=== PATIENT | female | born 1995 | race Two or more races ===

== ENCOUNTER 2021-04-10 14:23 | Emergency (ER) | payer BC, OTHER ==
[~2021-04-10] VITALS: Ht 162.6 cm; Wt 98.4 kg
[2021-04-10] MEDS ORDERED: HYDROmorphone HCL 2 MG/ML VL IV ONE (15:45)
[2021-04-10] MEDS ORDERED: ONDANSETRON HCL 4 MG/2 ML VIAL IV ONE (15:45)
[2021-04-10] MEDS ORDERED: SODIUM CHLORIDE 0.9% 1,000 ML IV ONE (15:45)
[2021-04-10 16:37] LABS: Albumin 3.2 g/dL (3.4-5.0); BUN/Creatinine Ratio 17.7; Calcium 9.1 mg/dL (8.5-10.1); Potassium 4.1 mmol/L (3.5-5.1)
[2021-04-10 16:39] LABS: Bilirubin, Total 0.3 mg/dL (0.2-1.0); Total Protein 7.6 g/dL (6.4-8.2)
[2021-04-10 16:44] LABS: Basophils # (auto) 0 10 ^3/uL (0-0.2); Basophils % (auto) 0.4 % (0.0-2.0); Eosinophils # (auto) 0.1 10 ^3/uL (0-0.8); Eosinophils % (auto) 0.8 % (0.0-7.0); Hematocrit 39.2 % (36.0-46.0); Hemoglobin 13.3 g/dL (12.2-16.2); Mean Corpuscular Hemoglobin 30.6 pg (28.0-32.0); Mean Corpuscular Hgb Conc. 33.8 g/dL (32.0-36.0); Mean Corpuscular Volume 90.7 fL (80.0-100.0); Monocytes # (auto) 0.7 10 ^3/uL (0-1.3); Monocytes % (auto) 7.4 % (0.0-12.0); Neutrophils # (auto) 6.5 10 ^3/uL (1.6-8.6); Neutrophils % (auto) 69.4 % (37.0-80.0); Red Blood Cells 4.33 10^6/uL (4.0-5.20); Red Cell Distribution Width 13.2 % (11.8-14.3); White Blood Cell 9.3 10^3/uL (4.4-10.8)
[2021-04-10 18:28] LABS: Urine Bacteria FEW /hpf (None Seen); Urine Blood 2+ /uL (Negative); Urine Budding Yeast FEW /hpf (None Seen); Urine Mucus FEW (None Seen); Urine Specific Gravity 1.023 (1.001-1.035); Urine WBC 9 /hpf (0 - 5)
[2021-04-10] MEDS ORDERED: ACETAMINOPHEN 500 MG TAB PO ONE (20:00)
[2021-04-10 22:37] VITALS: BP 112/65
== END 2021-04-10 22:49 | disposition home or self-care (01) ==
LOC: ER 14:31
DX: O23.41 Unspecified infection of urinary tract in pregnancy, first trimester (principal); Z3A.01 Less than 8 weeks gestation of pregnancy
CPT/HCPCS: 36415; 76801; 80053; 81001; 81025; 83605; 83690; 85025; 96361; 96374; 96375; 99285; J1170; J2405; J7030

== ENCOUNTER 2021-08-12 18:31 | Emergency (ER) | payer BC ==
[~2021-08-12] VITALS: Ht 162.6 cm; Wt 97.5 kg
[2021-08-12 20:05] LABS: Basophils # (auto) 0 10 ^3/uL (0-0.2); Basophils % (auto) 0.5 % (0.0-2.0); Eosinophils # (auto) 0.1 10 ^3/uL (0-0.8); Eosinophils % (auto) 0.9 % (0.0-7.0); Hematocrit 34.9 % (36.0-46.0); Hemoglobin 12.1 g/dL (12.2-16.2); Lymphocytes # (auto) 2.2 10 ^3/uL (0.4-5.4); Lymphocytes % (auto) 24.1 % (10.0-50.0); Mean Corpuscular Hemoglobin 31.4 pg (28.0-32.0); Mean Corpuscular Hgb Conc. 34.7 g/dL (32.0-36.0); Mean Corpuscular Volume 90.5 fL (80.0-100.0); Monocytes # (auto) 0.6 10 ^3/uL (0-1.3); Monocytes % (auto) 6.2 % (0.0-12.0); Neutrophils # (auto) 6.1 10 ^3/uL (1.6-8.6); Neutrophils % (auto) 68.3 % (37.0-80.0); Nucleated Red Blood Cells % 0.1 %; Red Blood Cells 3.86 10^6/uL (4.0-5.20); White Blood Cell 8.9 10^3/uL (4.4-10.8)
[2021-08-12 20:24] VITALS: BP 102/58
[2021-08-12 20:37] LABS: Albumin 2.9 g/dL (3.4-5.0); BUN/Creatinine Ratio 13.5; Calcium 9.4 mg/dL (8.5-10.1); Potassium 3.9 mmol/L (3.5-5.1)
[2021-08-12 20:40] LABS: Bilirubin, Total 0.2 mg/dL (0.2-1.0); Total Protein 7.5 g/dL (6.4-8.2)
== END 2021-08-12 22:05 | disposition left against medical advice (07) ==
LOC: ER 18:31
DX: O29.42 Spinal and epidural anesthesia induced headache during pregnancy, second trimester (principal); R51.9 Headache, unspecified; H57.12 Ocular pain, left eye; Z53.21 Procedure and treatment not carried out due to patient leaving prior to being seen by health care provider; Z3A.28 28 weeks gestation of pregnancy
CPT/HCPCS: 36415; 80053; 84702; 85025

== ENCOUNTER 2022-03-09 02:04 | Emergency (ER) | payer BC ==
[~2022-03-09] VITALS: Ht 162.6 cm; Wt 97.7 kg
[2022-03-09] MEDS ORDERED: ONDANSETRON HCL 4 MG/2 ML VIAL IV ONE (03:00)
[2022-03-09] MEDS ORDERED: MORPHINE SULFATE 4 MG/ML SYR/VIAL IV ONE (03:00)
[2022-03-09] MEDS ORDERED: LACTATED RINGER'S 1,000 ML IV ONE (03:00)
[2022-03-09 03:01] LABS: Basophils # (auto) 0.1 10 ^3/uL (0-0.2); Basophils % (auto) 1.1 % (0.0-2.0); Eosinophils # (auto) 0.1 10 ^3/uL (0-0.8); Eosinophils % (auto) 1.4 % (0.0-7.0); Hematocrit 39.3 % (36.0-46.0); Hemoglobin 13.4 g/dL (12.2-16.2); Lymphocytes % (auto) 36.9 % (10.0-50.0); Mean Corpuscular Hemoglobin 30.6 pg (28.0-32.0); Mean Corpuscular Hgb Conc. 34.1 g/dL (32.0-36.0); Mean Corpuscular Volume 89.7 fL (80.0-100.0); Monocytes # (auto) 0.6 10 ^3/uL (0-1.3); Monocytes % (auto) 7.6 % (0.0-12.0); Neutrophils # (auto) 4.3 10 ^3/uL (1.6-8.6); Red Blood Cells 4.38 10^6/uL (4.0-5.20); Red Cell Distribution Width 12.8 % (11.8-14.3); White Blood Cell 8.2 10^3/uL (4.4-10.8)
[2022-03-09 03:07] LABS: Albumin 3.6 g/dL (3.4-5.0); BUN/Creatinine Ratio 17.1; Calcium 8.8 mg/dL (8.5-10.1)
[2022-03-09 03:10] LABS: Bilirubin, Total 0.3 mg/dL (0.2-1.0); Total Protein 7.8 g/dL (6.4-8.2)
[2022-03-09 03:11] LABS: Urine Bacteria NONE SEEN /hpf (None Seen); Urine Blood 1+ /uL (Negative); Urine Mucus FEW (None Seen); Urine Specific Gravity 1.025 (1.001-1.035); Urine WBC <1 /hpf (0 - 5)
[2022-03-09 06:42] VITALS: BP 105/39
== END 2022-03-09 08:00 | disposition home or self-care (01) ==
LOC: ER 02:05
DX: K80.20 Calculus of gallbladder without cholecystitis without obstruction (principal); R10.13 Epigastric pain
CPT/HCPCS: 36415; 74177; 80053; 81001; 81025; 83690; 85025; 96361; 96374; 96375; 99285; J2270; J2405

== ENCOUNTER 2024-06-30 12:25 | Emergency (ER) | payer BC ==
[~2024-06-30] VITALS: Ht 162.6 cm; Wt 104.5 kg
--- NOTE | 2024-06-30 12:47 | ECG ---
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
--- NOTE | 2024-06-30 12:53 | ED.PDOC ---
History of Present Illness HPI Comments 29F presents to the ER w/ prior SHx of , Appendectomy and cerclage, and the c/c of Dizziness. Pt reports on being at work today, when she got up, and had a near syncope x2 of hearing and vision fading which lasted 10 second at 11:00a.m. today. Pt states on having similar symptoms 3 weeks ago of the near syncope and saw her PCP Wednesday where they did a Ct which was N/ and he stated to her that he is going to refer her to a Neurologist. Pt currently is stating that she has face numbness, and being lightheaded. Denies chills, fever, N/V/D, SOB, CP. Chief Complaint: Dizziness Time Seen by MD: 12:30 Primary Care Provider: HOMER CAMACHO Reviewed Notes: Nurses Notes, Medications, Allergies Allergies: Coded Allergies: NO KNOWN ALLERGIES (Unverified , 04/10/21) Information Source: Patient Mode of Arrival: Ambulatory Severity: Moderate Timing: Minutes Duration: Since onset, Minutes Prehospital treatment: None Past Medical History PAST MEDICAL HISTORY: Denies Surgical History: Appendectomy, Surgical History (Other): cerclage STATEMENT DISTRIBUTION CLERK History: No Pertinent STATEMENT DISTRIBUTION CLERK History Family History Family History: Reviewed,noncontributory to illness Social History Smoker: Non-Smoker Alcohol: Denies ETOH Use Drugs: Denies Drug Use Lives In: Home Constitutional: denies: chills, diaphoresis, fatigue, fever, malaise, sweats, weakness, others EENTM: denies: blurred vision, double vision, ear bleeding, ear discharge, ear drainage, ear pain, ear ringing, eye pain, eye redness, hearing loss, mouth pain, mouth swelling, nasal discharge, nose bleeding, nose congestion, nose pain, photophobia, tearing, throat pain, throat swelling, voice changes, others Respiratory: denies: cough, hemoptysis, orthopnea, SOB at rest, shortness of breath, SOB with excertion, stridor, wheezing, others Cardiovascular: reports: others (Near Syncope); denies: chest pain, dizzy spells, diaphoresis, Dyspnea on exertion, edema, irregular heart beat, left arm pain, lightheadedness, palpitations, PND, syncope Gastrointestinal: denies: abdomen distended, abdominal pain, blood streaked bowels, constipated, diarrhea, dysphagia, difficulty swallowing, hematemesis, melena, nausea, poor appetite, poor fluid intake, rectal bleeding, rectal pain, vomiting, others Genitourinary: denies: abnormal vagina bleeding, burning, dyspareunia, dysuria, flank pain, frequency, hematuria, incontinence, pain, , vagina discharge, urgency, others Neurological: reports: tingling (on face), others (lightheaded); denies: dizziness, fainting, headache, left sided numbness, left sided weakness, numbness, paresthesia, pre-existing deficit, right sided numbness, right sided weakness, seizure, speech problems, tremors, weakness Musculoskeletal: denies: back pain, gout, joint pain, joint swelling, muscle pain, muscle stiffness, neck pain, others Integumetry: denies: bruises, change in color, change in hair/nails, dryness, laceration, lesions, lumps, rash, wounds, others Allergic/Immunocompromised: denies: Difficulty Healing, Frequent Infections, Hives, Itching, others Hematologic/Lymphatic: denies: anemia, blood clots, easy bleeding, easy bruising, swollen glands, others Endocrine: denies: excessive hunger, excessive sweating, excessive thirst, excessive urination, flushing, intolerance to cold, intolerance to heat, unexplained weight gain, unexplained weight loss, others Psychiatric: denies: anxiety, bipolar disorder, depression, hopeless, panic disorder, schizophrenia, sleepless, suicidal, others All Other Systems: Reviewed and Negative Physical Exam General Appearance: No Apparent Distress, Normal HEENT: Normal ENT Inspection, Pharynx Normal, TMs Normal Neck: Full Range of Motion, Non-Tender, Normal, Normal Inspection Respiratory: Chest Non-Tender, Lungs Clear, No Accessory Muscle Use, No Respiratory Distress, Normal Breath Sounds Cardiovascular: No Edema, No JVD, No Murmur, No Gallop, Normal Peripheral Pulses, Regular Rate/Rhythm Breast Exam: Deferred Gastrointestinal: No Organomegaly, Non Tender, No Pulsatile Mass, Normal Bowel Sounds, Soft Genitalia: Deferred Pelvic: Deferred Rectal: Deferred Extremities: No calf tenderness, Normal capillary refill, Normal inspection, Normal range of motion, Non-tender, No pedal edema Musculoskeletal : Apperance: Normal Neurologic: Alert, transcription typist II-XII nml as Tested, No Motor Deficits, Normal Affect, Normal Mood, No Sensory Deficits Cerebellar Function: Normal Reflexes: Normal Skin: Dry, Normal Color, Warm Lymphatic: No Adenopathy Was a procedure done? Was a procedure done?: No EKG EKG : Pulse Rate (adult): 73 [place]: Normal Cardiac Rhythm: NSR Block: None Hypertrophy: None ST: Normal Differential Dx Considerations may include: Generalized weakness, viral syndrome, dehydration, near-syncope X-Ray, Labs, Meds, VS Vital Signs Date Time Temp Pulse Resp B/P (MAP) Pulse Ox O2 Delivery O2 Flow Rate FiO2 06/30/24 13:16 99.1 74 16 134/77 (96) 98 99.1 06/30/24 12:53 73 Lab Test 06/30/24 13:15 06/30/24 13:10 06/30/24 12:40 Range/Units Urine Color Colorless Yellow Urine Clarity Clear Clear Urine pH 6.5 5.0-9.0 Urine Specific [place] 1.003 1.001-1.035 Urine Protein Negative Negative Urine Ketones Negative Negative Urine Blood 1+ H Negative /uL Urine Nitrite Negative Negative Urine Bilirubin Negative Negative Urine Urobilinogen Normal Negative mg/dL Urine Leukocyte Esterase Negative Negative /uL Urine RBC 1 0 - 4 /hpf Urine Microscopic WBC < 1 0-5 /HPF Urine Squamous Epithelial Cells Few <5 /hpf Urine Bacteria Few H None Seen /hpf Urine Glucose Normal Normal mg/dL White Blood Count 7.9 4.4-10.8 10^3/uL Red Blood Count 4.60 4.0-5.20 10^6/uL Hemoglobin 14.0 12.2-16.2 g/dL Hematocrit 41.6 36.0-46.0 % Mean Corpuscular Volume 90.3 80.0-100.0 fL Mean Corpuscular Hemoglobin 30.4 28.0-32.0 pg Mean Corpuscular Hemoglobin Concent 33.7 32.0-36.0 g/dL Red Cell Distribution Width 12.6 11.8-14.3 % Platelet Count 260 140-450 10^3/uL Mean Platelet Volume 8.4 6.9-10.8 fL Neutrophils (%) (Auto) 54.2 37.0-80.0 % Lymphocytes (%) (Auto) 37.5 10.0-50.0 % Monocytes (%) (Auto) 5.9 0.0-12.0 % Eosinophils (%) (Auto) 1.9 0.0-7.0 % Basophils (%) (Auto) 0.5 0.0-2.0 % Neutrophils # (Auto) 4.3 1.6-8.6 10 ^3/uL Lymphocytes # (Auto) 3.0 0.4-5.4 10 ^3/uL Monocytes # (Auto) 0.5 0-1.3 10 ^3/uL Eosinophils # (Auto) 0.1 0-0.8 10 ^3/uL Basophils # (Auto) 0 0-0.2 10 ^3/uL Nucleated Red Blood Cells 0.1 % Sodium Level 139 136-145 mmol/L Potassium Level 3.5 3.5-5.1 mmol/L Chloride Level 105 98-107 mmol/L Carbon Dioxide Level 26 20-31 mmol/L Anion Gap 8 5-15 Blood Urea Nitrogen 10 9-23 mg/dL Creatinine 0.69 0.550-1.02 mg/dL Glomerular Filtration Rate Calc 119 >90 mL/min BUN/Creatinine Ratio 14.5 10.0-20.0 Serum Glucose 98 74-106 mg/dL Calcium Level 9.8 8.7-10.4 mg/dL POC Glucose 71 70-106 mg/dl The patient's CBC and chemistry panel are within normal limits. The patient's urine test is negative for infection At this time, the patient was being discharged The patient will follow up with the primary care doctor The patient will return to the emergency department's the condition worsens. We feel that this vertigo could be secondar to viral syndrome Time of 1ST Reevaluation: 13:00 Reevaluation 1ST: Unchanged Time of 2ND Reevaluation: 14:52 Reevaluation 2ND: Improved Patient Education/Counseling: Diagnosis, Treatment, Prognosis, Need For Follow Up Family Education/Counseling: No Family Present Departure 1 Departure Time of Disposition: 14:52 Impression: Primary Impression: Vertigo Additional Impression: Near syncope Disposition: 01 HOME / SELF CARE / HOMELESS Condition: Fair Discharged With: Self Critical Care Note Critical Care Time?: No Stability Stability form required: No Heart Score Heart Score: Heart Score Response (Comments) Value History N/A 0 EKG N/A 0 Age N/A 0 Risk Factors N/A 0 Troponin N/A 0 Total 0 I personally scribed for NELSON BROWN MD ([email or web address]) on 06/30/24 at 12:53. Electronically submitted by Juan Santana ([email or web address]). NELSON BROWN MD June 30, 2024 12:53
[2024-06-30 13:29] LABS: Basophils # (auto) 0 10 ^3/uL (0-0.2); Basophils % (auto) 0.5 % (0.0-2.0); Eosinophils # (auto) 0.1 10 ^3/uL (0-0.8); Eosinophils % (auto) 1.9 % (0.0-7.0); Hematocrit 41.6 % (36.0-46.0); Lymphocytes % (auto) 37.5 % (10.0-50.0); Mean Corpuscular Hemoglobin 30.4 pg (28.0-32.0); Mean Corpuscular Hgb Conc. 33.7 g/dL (32.0-36.0); Mean Corpuscular Volume 90.3 fL (80.0-100.0); Monocytes # (auto) 0.5 10 ^3/uL (0-1.3); Monocytes % (auto) 5.9 % (0.0-12.0); Neutrophils # (auto) 4.3 10 ^3/uL (1.6-8.6); Neutrophils % (auto) 54.2 % (37.0-80.0); Nucleated Red Blood Cells % 0.1 %; Platelet Count (auto) 260 10^3/uL (140-450); Red Cell Distribution Width 12.6 % (11.8-14.3); White Blood Cell 7.9 10^3/uL (4.4-10.8)
[2024-06-30 13:34] LABS: Chloride 105 mmol/L (98-107); Potassium 3.5 mmol/L (3.5-5.1); Sodium 139 mmol/L (136-145)
[2024-06-30 13:35] LABS: Anion Gap 8 (5-15); Calcium 9.8 mg/dL (8.7-10.4); Carbon Dioxide 26 mmol/L (20-31)
[2024-06-30 13:40] LABS: BUN/Creatinine Ratio 14.5 (10.0-20.0); Blood Urea Nitrogen 10 mg/dL (9-23); Glucose 98 mg/dL (74-106)
[2024-06-30 13:54] LABS: Urine Bacteria FEW /hpf (None Seen); Urine Blood 1+ /uL (Negative); Urine Clarity Clear (Clear); Urine Color Colorless (Yellow); Urine Protein, UAD Negative (Negative); Urine Specific Gravity 1.003 (1.001-1.035); Urine Squamous Epithelial Cell FEW /hpf (<5); Urine Urobilinogen Normal (Negative); Urine WBC < 1 /HPF (0-5); Urine pH 6.5 (5.0-9.0)
[2024-06-30 17:01] VITALS: BP 95/45; PULSE 68; RESP 15; TEMP 98.4; O2SAT 98
== END 2024-06-30 17:11 | disposition home or self-care (01) ==
LOC: ER 12:25
DX: R42 Dizziness and giddiness (principal); R55 Syncope and collapse; Z90.49 Acquired absence of other specified parts of digestive tract; Z98.890 Other specified postprocedural states
CPT/HCPCS: 36415; 80048; 81001; 82947; 82962; 85025; 93005

== ENCOUNTER 2024-08-23 19:47 | Emergency (ER) | payer BC ==
[~2024-08-23] VITALS: Ht 162.6 cm; Wt 104.1 kg
[2024-08-23 21:01] LABS: Basophils # (auto) 0 10 ^3/uL (0-0.2); Basophils % (auto) 0.4 % (0.0-2.0); Eosinophils # (auto) 0.1 10 ^3/uL (0-0.8); Eosinophils % (auto) 1.2 % (0.0-7.0); Hematocrit 41.4 % (36.0-46.0); Lymphocytes # (auto) 2.7 10 ^3/uL (0.4-5.4); Lymphocytes % (auto) 30.3 % (10.0-50.0); Mean Corpuscular Hemoglobin 30.6 pg (28.0-32.0); Mean Corpuscular Hgb Conc. 33.8 g/dL (32.0-36.0); Mean Corpuscular Volume 90.6 fL (80.0-100.0); Monocytes # (auto) 0.5 10 ^3/uL (0-1.3); Monocytes % (auto) 5.6 % (0.0-12.0); Neutrophils # (auto) 5.6 10 ^3/uL (1.6-8.6); Neutrophils % (auto) 62.5 % (37.0-80.0); Nucleated Red Blood Cells % 0.1 %; Platelet Count (auto) 233 10^3/uL (140-450); Red Blood Cells 4.57 10^6/uL (4.0-5.20); Red Cell Distribution Width 12.8 % (11.8-14.3)
[2024-08-23 21:10] LABS: Potassium 3.7 mmol/L (3.5-5.1); Sodium 143 mmol/L (136-145)
[2024-08-23 21:11] LABS: Anion Gap 13 (5-15); Calcium 9.4 mg/dL (8.7-10.4); Carbon Dioxide 22 mmol/L (20-31)
[2024-08-23 21:16] LABS: BUN/Creatinine Ratio 14.7 (10.0-20.0); Blood Urea Nitrogen 11 mg/dL (9-23); Glucose 83 mg/dL (74-106)
[2024-08-23 21:23] LABS: Chloride 108 mmol/L (98-107)
--- NOTE | 2024-08-23 22:25 | ED.PDOC ---
HPI Comments 29 y/o obese F is BIBA for c/c palpitations. Per EMS report, patient endorses on sudden and unprovoked onset of symptoms, while driving to work, 30-45x minutes prior to arrival. She was noted to have been found with an initial heart rate in the 240's. Vagal techniques and 1x 6mg of Adenosine was given, with improvement. At time of assessment, patient endorses on being asymptomatic. 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 Chief Complaint: Palpitations Time Seen by MD: 20:20 Primary Care Provider: HOMER CAMACHO Reviewed Notes: Nurses Notes, Performance Improvement Analyst Notes, Medications, Allergies Allergies: Coded Allergies: NO KNOWN ALLERGIES (Unverified , 04/10/21) Information Source: Patient, Emergency Med Personnel Mode of Arrival: EMS Severity: Moderate Timing: Hours Duration: Since onset Prehospital treatment: 12 Lead EKG, Physical Chemistry Teacher, Treatment (6mg Adenosine) Associated Signs and Symptoms: Palpitations Past Medical History Past Medical History (Other): Palpitations Surgical History: Appendectomy, NEGATIVE ASSEMBLER History: No Pertinent NEGATIVE ASSEMBLER History Family History Family History: Reviewed,noncontributory to illness Social History Smoker: Non-Smoker Alcohol: Denies ETOH Use Drugs: Denies Drug Use Lives In: Home All Other Systems: Reviewed and Negative (Comprehensive systems review obtained and negative except for what is stated in the HPI.) Physical Exam General Appearance: No Apparent Distress, Obese HEENT: Normal ENT Inspection, Pharynx Normal, TMs Normal Neck: Full Range of Motion, Non-Tender, Normal, Normal Inspection Respiratory: Chest Non-Tender, Lungs Clear, No Accessory Muscle Use, No Respiratory Distress, Normal Breath Sounds Cardiovascular: No Edema, No JVD, No Murmur, No Gallop, Normal Peripheral Pulses, Regular Rate/Rhythm Breast Exam: Deferred Gastrointestinal: No Organomegaly, Non Tender, No Pulsatile Mass, Normal Bowel Sounds, Soft Genitalia: Deferred Pelvic: Deferred Rectal: Deferred Extremities: No calf tenderness, Normal capillary refill, Normal inspection, Normal range of motion, Non-tender, No pedal edema Musculoskeletal : Apperance: Normal Neurologic: Alert, high school auto repair teacher II-XII nml as Tested, No Motor Deficits, Normal Affect, Normal Mood, No Sensory Deficits Cerebellar Function: Normal Reflexes: Normal Skin: Dry, Normal Color, Warm Lymphatic: No Adenopathy Was a procedure done? Was a procedure done?: No CP Differential Dx Differential Diagnosis: Anxiety / Panic Attack, PSVT, Sinus Tachycardia, Ventricular Dysrhythmia, V-Tach Differential Diagnosis: N/A Differential Diagnosis: Other (N/A) X-Ray, Labs, Meds, VS Vital Signs Date Time Temp Pulse Resp B/P (MAP) Pulse Ox O2 Delivery O2 Flow Rate FiO2 08/23/24 22:46 87 87 98 Room Air* 0 21 08/23/24 22:46 97.9 87 20 107/66 (80) 98 97.9 08/23/24 19:55 99.3 99 20 132/75 (94) 96 99.3 08/23/24 19:49 107 Lab Test 08/23/24 23:00 08/23/24 21:33 08/23/24 20:46 Range/Units Urine Color Colorless Yellow Urine Clarity Clear Clear Urine pH 6.5 5.0-9.0 Urine Specific [place] 1.010 1.001-1.035 Urine Protein Negative Negative Urine Ketones Negative Negative Urine Blood Negative Negative /uL Urine Nitrite Negative Negative Urine Bilirubin Negative Negative Urine Urobilinogen Normal Negative mg/dL Urine Leukocyte Esterase 1+ Negative /uL Urine RBC None seen 0 - 4 /hpf Urine Microscopic WBC 1 0-5 /HPF Urine Squamous Epithelial Cells Few <5 /hpf Urine Bacteria Few H None Seen /hpf Urine Glucose Normal Normal mg/dL Urine Test Negative Negative Troponin I High Sensitivity 8 3 L </=34 ng/L White Blood Count 9.0 4.4-10.8 10^3/uL Red Blood Count 4.57 4.0-5.20 10^6/uL Hemoglobin 14.0 12.2-16.2 g/dL Hematocrit 41.4 36.0-46.0 % Mean Corpuscular Volume 90.6 80.0-100.0 fL Mean Corpuscular Hemoglobin 30.6 28.0-32.0 pg Mean Corpuscular Hemoglobin Concent 33.8 32.0-36.0 g/dL Red Cell Distribution Width 12.8 11.8-14.3 % Platelet Count 233 140-450 10^3/uL Mean Platelet Volume 8.0 6.9-10.8 fL Neutrophils (%) (Auto) 62.5 37.0-80.0 % Lymphocytes (%) (Auto) 30.3 10.0-50.0 % Monocytes (%) (Auto) 5.6 0.0-12.0 % Eosinophils (%) (Auto) 1.2 0.0-7.0 % Basophils (%) (Auto) 0.4 0.0-2.0 % Neutrophils # (Auto) 5.6 1.6-8.6 10 ^3/uL Lymphocytes # (Auto) 2.7 0.4-5.4 10 ^3/uL Monocytes # (Auto) 0.5 0-1.3 10 ^3/uL Eosinophils # (Auto) 0.1 0-0.8 10 ^3/uL Basophils # (Auto) 0 0-0.2 10 ^3/uL Nucleated Red Blood Cells 0.1 % Sodium Level 143 136-145 mmol/L Potassium Level 3.7 3.5-5.1 mmol/L Chloride Level 108 H 98-107 mmol/L Carbon Dioxide Level 22 20-31 mmol/L Anion Gap 13 5-15 Blood Urea Nitrogen 11 9-23 mg/dL Creatinine 0.75 0.550-1.02 mg/dL Glomerular Filtration Rate Calc 109 >90 mL/min BUN/Creatinine Ratio 14.7 10.0-20.0 Serum Glucose 83 74-106 mg/dL Calcium Level 9.4 8.7-10.4 mg/dL Time of 1ST Reevaluation: 23:35 Reevaluation 1ST: Resolved Patient Education/Counseling: Diagnosis, Treatment, Need For Follow Up Family Education/Counseling: No Family Present Additional Information Previous visits reviewed: June 30, 2024 encounter for dizziness. The following tests were ordered, and results were reviewed by me: Troponin, urine test, UA, CBC, BMP Additional Information was gathered from interviewing the following independent historians: EMS I reviewed and agreed with the following test results read by other providers: N/A I discussed treatment and results with medical personnel and: patient SEPSIS Sepsis Screen Date sepsis recognized/suspect: Aug 23, 2024 Time Sepsis recognized/suspect: 1954 Recent Procedure: No On Antibiotic Therapy: No Respiratory Rate >20: Yes Heart Rate >90: Yes Temp<36 C (96.8 F) or >38.3 C: No SBP <90 or MAP <65 mmHG: No New Acute Mental Status Change: No Is the patient on CPAP, BIPAP,: No Physician Orders Electrocardigram (08/23/24 23:02) Vital Signs Date Time Temp Pulse Resp B/P (MAP) Pulse Ox O2 Delivery O2 Flow Rate FiO2 08/23/24 22:46 87 87 98 Room Air* 0 21 08/23/24 22:46 97.9 87 20 107/66 (80) 98 97.9 08/23/24 19:55 99.3 99 20 132/75 (94) 96 99.3 08/23/24 19:49 107 Laboratory Tests Test 08/23/24 20:46 White Blood Count 9.0 10^3/uL (4.4-10.8) Departure 1 Departure Time of Disposition: 23:34 (Patient presented with palpitations and was found to be in SVT and converted with adenosine by EMS patient was offered admission to outside with the patient for to go home. We will discharge patient home with outpatient follow up) Impression: Primary Impression: SVT (supraventricular tachycardia) Additional Impression: Palpitations Disposition: HOME / SELF CARE / HOMELESS Condition: Stable Additional Instructions: Your workup today was benign. You can take Tylenol or Motrin as needed for pain. You should follow up with your regular doctor within 1 week. You should stay well rested and well hydrated. If your symptoms worsen or you have any other concerns please return to the emergency room. Discharged With: Self Critical Care Note Critical Care Time?: No Stability Stability form required: No Heart Score Heart Score: Heart Score Response (Comments) Value History Moderate Suspicious 1 EKG Normal 0 Age <45 0 Risk Factors 1 or 2 risk factors 1 Troponin Normal limit 0 Total 2 I personally scribed for JEREL KEVIN MD ([email or web address]) on 08/23/24 at 22:25. Electronically submitted by Diallo Daniel ([email or web address]). JEREL KEVIN MD Aug 23, 2024 22:25
[2024-08-23 22:46] VITALS: PULSE 87; RESP 87; TEMP 97.9; O2SAT 98
[2024-08-23 23:26] LABS: Urine Bacteria FEW /hpf (None Seen); Urine Blood Negative /uL (Negative); Urine Clarity Clear (Clear); Urine Color Colorless (Yellow); Urine Protein, UAD Negative (Negative); Urine Squamous Epithelial Cell FEW /hpf (<5); Urine Urobilinogen Normal (Negative); Urine WBC 1 /HPF (0-5); Urine pH 6.5 (5.0-9.0)
[2024-08-24 00:26] VITALS: BP 108/69; PULSE 75; RESP 16; O2SAT 97
--- NOTE | 2024-08-24 10:59 | ECG ---
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
== END 2024-08-24 00:30 | disposition home or self-care (01) ==
LOC: EDUNIT# 19:47 → ER 19:47 → EDBD 19:47 → ER 08-24 00:28
DX: I47.10 Supraventricular tachycardia, unspecified (principal); R00.2 Palpitations; Z90.49 Acquired absence of other specified parts of digestive tract
CPT/HCPCS: 36415; 80048; 81001; 81025; 84484; 85025; 93005

== ENCOUNTER 2024-12-04 18:07 | Emergency (ER) | payer BC ==
[~2024-12-04] VITALS: Ht 162.6 cm; Wt 103.6 kg
[2024-12-04 19:30] LABS: Urine Protein, UAD Negative (Negative)
[2024-12-04 19:32] LABS: Hematocrit 39.9 % (36.0-46.0); Hemoglobin 14.0 g/dL (12.2-16.2); Mean Corpuscular Hemoglobin 31.9 pg (28.0-32.0); Mean Corpuscular Volume 91.1 fL (80.0-100.0); Nucleated Red Blood Cells % 0.1 %
[2024-12-04 19:49] LABS: Alanine Aminotransferase 37 U/L (7-40); Albumin 4.5 g/dL (3.2-4.8); Alkaline Phosphatase 78 U/L (46-116); Anion Gap 12 (5-15); BUN/Creatinine Ratio 18.2 (10.0-20.0); Blood Urea Nitrogen 10 mg/dL (9-23); Calcium 9.6 mg/dL (8.7-10.4); Carbon Dioxide 23 mmol/L (20-31); Chloride 104 mmol/L (98-107); Glucose 90 mg/dL (74-106); Lipase 29 U/L (12-53); Potassium 4.1 mmol/L (3.5-5.1); Sodium 139 mmol/L (136-145); Total Protein 7.6 g/dL (5.7-8.2)
[2024-12-04 19:50] LABS: Bilirubin, Total 0.3 mg/dL (0.2-1.0)
--- NOTE | 2024-12-04 20:07 | DVH ---
CLINICAL HISTORY: GALLBLADDER/RUQ TECHNIQUE: Transabdominal sonogram was performed of the right upper quadrant. COMPARISON: CT AB PEL WITH IV CON ONLY on DOS: 03/09/22, ABPLIV on DOS: 03/09/22, OB ULTRASOUND COMP LESS 14WKS on DOS: 04/10/21 FINDINGS: The liver is increased in echogenicity. There is no focal parenchymal abnormality. No intrahepatic b iliary ductal dilatation is present. The liver measures 18.9 cm. The gallbladder is normal with no evidence for stones or wall thickening. The common bile duct is not seen. There is no dilated structure in its expected location. The pancreas is not. The right kidney is normal in echogenicity and measures 9 cm in length. There is no evidence for hydr onephrosis or calculi. IMPRESSION: Hepatomegaly with diffuse hepatic steatosis.
--- NOTE | 2024-12-04 20:13 | DVH ---
INDICATION: epig pain TECHNIQUE: Multiple real-time grayscale transabdominal and transvaginal sonographic images along with color and duplex Doppler of the uterus and ovaries were obtained. COMPARISON: OB ULTRASOUND COMP LESS 14WKS on DOS: 04/10/21 FINDINGS: The uterus measures 9.7 by 5 x 6.4 cm. Appears to be a gestational sac in the endometrial canal. The right ovary measures 3.2 x 2.3 x 3.1 cm. The left ovary measures 3.4 x 2.2 x 2.6 cm. There is a 1.4 x 1.4 x 1.7 cm anechoic lesion in the lef t ovary. Subsequent color and duplex Doppler interrogation of the ovaries demonstrated symmetric vascular flow to both ovaries, though this does not exclude the possibility of torsion due to the dual blood suppl y. Questionable gestational sac in the uterus which measures 0.74 cm. This is out of range for estimati ng gestational age. There is a questionable yolk sac noted within it. Recommend follow-up study. IMPRESSION: 1. Small cystic area in the endometrial canal measuring 1.66 x 1.31 x 1.47 cm cm. There is questionab le yolk sac seen. These findings are out of range for estimating gestational age. 2. No pole or heart rate. 3. There is a small hypovascular lesion in the uterus measuring 8 x 6 x 8 mm which appears nonvascul ar. 4. Recommend follow-up study.
--- NOTE | 2024-12-04 20:53 | ED.PDOC ---
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 29-year-old female presents to emergency department for evaluation of epigastric pain that started half an hour after she ate a grape fruit. Pain is nonspecific. Denies any nausea or vomiting or diarrhea or any lower abdominal pain. Patient states that she is but she does not know how far along. She is with three miscarriages. Patient denies any vaginal bleed. By the time I evaluated the patient she says the all her symptoms have resolved. She no longer has any abdominal discomfort. Past Medical History: Palpitations Past Surgical History: caught, cerclage REVIEW OF SYSTEMS: CONSTITUTIONAL: Denies acute: fever, diaphoresis, chills, generalized weakness. HEAD: Denies acute: headache, photophobia Eyes: Denies acute: Double vision, vision loss, eye pain, eye discharge. EARS: Denies acute: tinnitus, hearing loss, ear discharge, ear pain, THROAT: Denies acute: sore throat, swelling, difficulty swallowing , pain with swallowing, change in voice. NECK: Denies acute: neck pain, neck swelling, stiff neck. HEART: Denies acute : chest pain, palpitations, LUNGS: Denies acute: SOB, wheezing, cough, hemoptysis ABDOMEN: Denies acute: abdominal pain, Nausea, Vomiting, diarrhea, melena , hematemesis, hematochezia SKIN: Denies acute: rash, redness, lesions, itchiness. EXTREMITIES: Denies acute: calf pain, numbness, tingling, weakness, denies pain in extremity. Denies acute: Low back pain. Neuro: Denies acute: focal neurological deficit, motor or sensory focal neurological deficit, tremors, seizure like activity, confusion, dizziness, change in mental status, loss of bowel or bladder function, cauda equina like symptoms. : Denies acute: dysuria, hematuria, flank pain, increase in urinary frequency. PSYCH: Denies acute: hallucination, suicidal ideation, homicidal ideation. FEMALE: Denies acute: abnormal vaginal bleeding, foul odor, unusual discharge. PHYSICAL EXAM: General: -----no---acute distress, awake and alert. Head: normocephalic, atraumatic. Neck: supple, trachea is midline, no swelling. Throat: Normal phonation. Eyes:, no erythema, no purulent discharge, no proptosis, no icterus. Heart: regular rate, regular rhythm, no significant murmur appreciated. Lungs: no apparent respiratory distress, Able to speak in full sentences. No wheezing, no rhonchi, no crackles. No stridors Clear to auscultation bilaterally. Abdomen: non tender to palpation, non distended, soft, no guarding, no rebound, + bowel sounds. Obese Neuro: Awake, Alert, oriented to name, self, situation, follows commands GCS=15. Speech is normal. Skin: no petechia, no purpura, no cyanosis, non-pale, not jaundice. Lower extremities: --no - Pitting edema no deformity, no focal swelling, no calf TTP. Makes eye contact. moves all four extremities. Face: no apparent facial droop. Ambulating in the ED independently. ED COURSE: DISCLAIMER: This medical document was created using an electronic medical record system with voice recognition software and computerized dictation system. Although this document has been carefully reviewed, there might still be some phonetic and typographical errors. Occasional wrong-word or "sound-alike" substitutions may have occurred due to the inherent limitations of voice recognition software. These areas are purely typographical due to imperfections of the software programs and do not reflect any compromise in the patient's medical care. Please read the chart carefully and recognize, using context, where these substitutions have occurred. Chief Complaint: Abdominal Pain Time Seen by MD: 20:50 Reviewed Notes: Nurses Notes, Medications, Allergies Allergies: Coded Allergies: NO KNOWN ALLERGIES (Unverified , 04/10/21) Home Meds Active Scripts Cephalexin Monohydrate (Cephalexin) 500 Mg Cap, 500 MG PO Q8HR PRN for 5 Days, #15 CAP Prov:LOIBE ARBOLEDA DO 12/04/24 Information Source: Patient Mode of Arrival: Ambulatory Timing: Hours Prehospital treatment: None Severity: Moderate Vaginal Discharge: None Vaginal Lesions: None Vaginal Mass: None History of: Current Blood Type: Unknown Symptoms of Possible : Missed Period, Feels Past Medical History Surgical History: Appendectomy, 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 Was a procedure done?: No Differential Diagnosis (GUMMED TAPE PRESS OPERATOR) Vaginal Bleeding: Other (DDX include Diverticulitis, colitis, gastroenteritis, acute abdomen, SBO, enteritis, constipation, volvulus, appendicitis, Gallbladder disease, choledocolithiasis, ascending cholangitis, pancreatitis, intraAbdominal mass/neoplasm, hepatitis, UTI, pylonephritis, kidney stone, aneurysm, dissection, Inflammatory bowel disease, gastroparesis, ischemic bowel,,,,,,ovarian torsion, ovarian cyst/mass, tubo-ovarian abscess, , ectopic , PID, STD.), N/A X-Ray, Labs, Meds, VS Vital Signs Date Time Temp Pulse Resp B/P (MAP) Pulse Ox O2 Delivery O2 Flow Rate FiO2 12/04/24 22:35 97.8 66 16 122/62 (82) 99 97.8 12/04/24 18:08 98.2 96 18 127/87 99 98.2 Lab Test 12/04/24 18:48 12/04/24 18:26 Range/Units White Blood Count 10.2 4.4-10.8 10^3/uL Red Blood Count 4.38 4.0-5.20 10^6/uL Hemoglobin 14.0 12.2-16.2 g/dL Hematocrit 39.9 36.0-46.0 % Mean Corpuscular Volume 91.1 80.0-100.0 fL Mean Corpuscular Hemoglobin 31.9 28.0-32.0 pg Mean Corpuscular Hemoglobin Concent 35.0 32.0-36.0 g/dL Red Cell Distribution Width 13.2 11.8-14.3 % Platelet Count 220 140-450 10^3/uL Mean Platelet Volume 8.6 6.9-10.8 fL Neutrophils (%) (Auto) 61.1 37.0-80.0 % Lymphocytes (%) (Auto) 30.2 10.0-50.0 % Monocytes (%) (Auto) 7.0 0.0-12.0 % Eosinophils (%) (Auto) 1.2 0.0-7.0 % Basophils (%) (Auto) 0.5 0.0-2.0 % Neutrophils # (Auto) 6.3 1.6-8.6 10 ^3/uL Lymphocytes # (Auto) 3.1 0.4-5.4 10 ^3/uL Monocytes # (Auto) 0.7 0-1.3 10 ^3/uL Eosinophils # (Auto) 0.1 0-0.8 10 ^3/uL Basophils # (Auto) 0.1 0-0.2 10 ^3/uL Nucleated Red Blood Cells 0.1 % Sodium Level 139 136-145 mmol/L Potassium Level 4.1 3.5-5.1 mmol/L Chloride Level 104 98-107 mmol/L Carbon Dioxide Level 23 20-31 mmol/L Anion Gap 12 5-15 Blood Urea Nitrogen 10 9-23 mg/dL Creatinine 0.55 0.550-1.02 mg/dL Glomerular Filtration Rate Calc 126 >90 mL/min BUN/Creatinine Ratio 18.2 10.0-20.0 Serum Glucose 90 74-106 mg/dL Calcium Level 9.6 8.7-10.4 mg/dL Total Bilirubin 0.3 0.2-1.0 mg/dL Aspartate Amino Transferase (AST) 22 13-40 U/L Alanine Aminotransferase (ALT) 37 7-40 U/L Alkaline Phosphatase 78 46-116 U/L Total Protein 7.6 5.7-8.2 g/dL Albumin 4.5 3.2-4.8 g/dL Lipase 29 12-53 U/L Beta HCG, Quantitative 88685.1 H 1.5-4.2 mIU/mL Urine Color Light-yellow Yellow Urine Clarity Clear Clear Urine pH 6.0 5.0-9.0 Urine Specific [place] 1.024 1.001-1.035 Urine Protein Negative Negative Urine Ketones Negative Negative Urine Blood Negative Negative /uL Urine Nitrite Negative Negative Urine Bilirubin Negative Negative Urine Urobilinogen Normal Negative mg/dL Urine Leukocyte Esterase 2+ Negative /uL Urine RBC 3 0 - 4 /hpf Urine Microscopic WBC 8 H 0-5 /HPF Urine Squamous Epithelial Cells Few <5 /hpf Urine Bacteria Few H None Seen /hpf Urine Mucus Few None Seen Urine Glucose Normal Normal mg/dL [facility] [address] [facility] [address] Ph: [phone] DIAGNOSTIC IMAGING Diagnostic Imaging Report : [id number] Signed PATIENT: NEMESIO WEBSTER ACCT: [id number] UNIT: [id number] : 1995 LOC: ER ROOM / BED: / AGE / SEX: 29 / F ADM STATUS: REG ER SERVICE 36 ORDERING PHYSICIAN: BE MONSIVAIS DO PROCEDURE(s): ABDL - ABDOMEN LIMITED REASON: GALLBLADDER/RUQ ORDER NUMBER(s): [id number], ACCESSION NUMBER(s): [id number] CLINICAL HISTORY: GALLBLADDER/RUQ TECHNIQUE: Transabdominal sonogram was performed of the right upper quadrant. COMPARISON: CT AB PEL WITH IV CON ONLY on DOS: 03/09/22, ABPLIV on DOS: 03/09/22, OB ULTRASOUND COMP LESS 14WKS on DOS: 04/10/21 FINDINGS: The liver is increased in echogenicity. There is no focal parenchymal abnormality. No intrahepatic biliary ductal dilatation is present. The liver measures 18.9 cm. The gallbladder is normal with no evidence for stones or wall thickening. The common bile duct is not seen. There is no dilated structure in its expected location. The pancreas is not. The right kidney is normal in echogenicity and measures 9 cm in length. There is no evidence for hydronephrosis or calculi. IMPRESSION: Hepatomegaly with diffuse hepatic steatosis. ATED BY: SHANNAN BISHOP MD DICTATED DATE/TIME: 12/04/242004 SIGNED BY: SHANNAN BISHOP MD SIGNED DATE/TIME: 12/04/242004 CC: [place] [address] Ph: [phone] DIAGNOSTIC IMAGING Diagnostic Imaging Report : [id number] Signed PATIENT: NEMESIO WEBSTER ACCT: [id number] UNIT: [id number] : 1995 LOC: ER ROOM / BED: / AGE / SEX: 29 / F ADM STATUS: REG ER SERVICE 36 ORDERING PHYSICIAN: BE MONSIVAIS DO PROCEDURE(s): OB4US - OB ULTRASOUND COMP LESS 14WKS REASON: epig pain ORDER NUMBER(s): [id number], ACCESSION NUMBER(s): [id number] INDICATION: epig pain TECHNIQUE: Multiple real-time grayscale transabdominal and transvaginal sonographic images along with color and duplex Doppler of the uterus and ovaries were obtained. COMPARISON: OB ULTRASOUND COMP LESS 14WKS on DOS: 04/10/21 FINDINGS: The uterus measures 9.7 by 5 x 6.4 cm. Appears to be a gestational sac in the endometrial canal. The right ovary measures 3.2 x 2.3 x 3.1 cm. The left ovary measures 3.4 x 2.2 x 2.6 cm. There is a 1.4 x 1.4 x 1.7 cm anechoic lesion in the left ovary. Subsequent color and duplex Doppler interrogation of the ovaries demonstrated symmetric vascular flow to both ovaries, though this does not exclude the possibility of torsion due to the dual blood supply. Questionable gestational sac in the uterus which measures 0.74 cm. This is out of range for estimating gestational age. There is a questionable yolk sac noted within it. Recommend follow-up study. IMPRESSION: 1. Small cystic area in the endometrial canal measuring 1.66 x 1.31 x 1.47 cm cm. There is questionable yolk sac seen. These findings are out of range for estimating gestational age. 2. No pole or heart rate. 3. There is a small hypovascular lesion in the uterus measuring 8 x 6 x 8 mm which appears nonvascular. 4. Recommend follow-up study. ATED BY: DALY HARDIN Jr., DO DICTATED DATE/TIME: 12/04/242010 SIGNED BY: DALY HARDIN Jr., SIGNED DATE/TIME: 12/04/242010 CC: Time of 1ST Reevaluation: 21:20 Reevaluation 1ST: Unchanged Time of 2ND Reevaluation: 22:03 (The case was discussed with the [facility] on- call team (HPI, physical exam, labs and diagnostic tests that were available at the time of disposition, ED course, treatment plan) on the phone. They recommend to discharge the patient home and repeat ultrasound this coming Wednesday and repeat beta-hCG levels. Dr. Osuna. She spoke with the gis mapping technician directly as well.) Reevaluation 2ND: Improved Patient Education/Counseling: Diagnosis, Treatment Family Education/Counseling: No Family Present Comments MDM: patient presented with the above HPI.--abdominal pain in ----workup was initiated. patient was found with the above mentioned diagnosis. the following medications were ordered: please refer to order lists of meds and tests obtained by myself Dr. Monsivais. Patient ED course and VS have been stabilized. Patient has been reassessed in the ED and remained in a stable condition. Pertinent incidental findings were discussed with the patient and/or family. Patient/family voices understanding and is agreeable with plan. Patient has been observed in the ED adequate length of time to insure improvement/stability. Escalation of care considered: Consideration of escalation to observation or admission Patient was DISCHARGED home in a stable condition. All the reports of any imaging studies that were ordered by myself were reviewed by myself. Departure 1 Departure Time of Disposition: 22:04 Impression: Primary Impression: Epigastric pain Additional Impressions: Positive test UTI in Disposition: 01 HOME / SELF CARE / HOMELESS Condition: Stable Additional Instructions: Additional instructions: Please read all instructions provided in this packet carefully. You MUST follow-up with your primary care/family doctor in 1 to 2 days. If you are unable to see your primary care/family doctor, please return to our emergency room for re-assessment and re-evaluation in 1 to 2 days. Return to the emergency room here in our facility or to the nearest ER [facility] if your symptoms change or worsen. CONSULTATIONS: you MUST Follow-up for consultation as soon as possible with: Dr.-OB Jose doctor in 1-2 days. Please call for appointment You MUST call the consultants office yourself to make an appointment. You may need to arrange that through your insurance and/or your primary/family doctor. If you are unable to see the residential solar sales consultant in 1 to 2 days, you must return to our emergency room (or any other ER of your choice) for re-assessment and re- evaluation. Adequate fluid hydration. Avoid fatty greasy spicy food. Avoid caffeinated products. Avoid NSAIDs. Continue taking vitamins daily. Although you have been discharged from the Emergency Department, this does not mean that you have a "clean bill of health". No definitive diagnosis for your symptoms has been made today. It is possible that you are in the process of developing a serious illness. This is why you must return to the ED without fail if any new or worsening symptoms develop. Absolute pelvic rest. Repeat pelvic ultrasound this Wednesday. Repeat beta-hCG levels in 48-72 hours. Today your beta-hCG level is: 03000.1 Below is a copy of your radiological report for follow up: [address] [address] Ph: [phone] DIAGNOSTIC IMAGING Diagnostic Imaging Report : [id number] Signed PATIENT: NEMESIO WEBSTER ACCT: [id number] UNIT: [id number] : 1995 LOC: ER ROOM / BED: / AGE / SEX: 29 / F ADM STATUS: REG ER SERVICE 183 ORDERING PHYSICIAN: BE MONSIVAIS DO PROCEDURE(s): ABDL - ABDOMEN LIMITED REASON: GALLBLADDER/RUQ ORDER NUMBER(s): [id number], ACCESSION NUMBER(s): [id number] CLINICAL HISTORY: GALLBLADDER/RUQ TECHNIQUE: Transabdominal sonogram was performed of the right upper quadrant. COMPARISON: CT AB PEL WITH IV CON ONLY on DOS: 03/09/22, ABPLIV on DOS: 03/09/22, OB ULTRASOUND COMP LESS 14WKS on DOS: 04/10/21 FINDINGS: The liver is increased in echogenicity. There is no focal parenchymal abnormality. No intrahepatic biliary ductal dilatation is present. The liver measures 18.9 cm. The gallbladder is normal with no evidence for stones or wall thickening. The common bile duct is not seen. There is no dilated structure in its expected location. The pancreas is not. The right kidney is normal in echogenicity and measures 9 cm in length. There is no evidence for hydronephrosis or calculi. IMPRESSION: Hepatomegaly with diffuse hepatic steatosis. ATED BY: SHANNAN BISHOP MD DICTATED DATE/TIME: 12/04/242004 SIGNED BY: SHANNAN BISHOP MD SIGNED DATE/TIME: 12/04/242004 CC: [address] [address] Ph: [phone] DIAGNOSTIC IMAGING Diagnostic Imaging Report : [id number] Signed PATIENT: NEMESIO WEBSTER ACCT: [id number] UNIT: [id number] : 1995 LOC: ER ROOM / BED: / AGE / SEX: 29 / F ADM STATUS: REG ER SERVICE 1837 ORDERING PHYSICIAN: BE MONSIVAIS DO PROCEDURE(s): OB4US - OB ULTRASOUND COMP LESS 14WKS REASON: epig pain ORDER NUMBER(s): [id number], ACCESSION NUMBER(s): [id number] INDICATION: epig pain TECHNIQUE: Multiple real-time grayscale transabdominal and transvaginal sonographic images along with color and duplex Doppler of the uterus and ovaries were obtained. COMPARISON: OB ULTRASOUND COMP LESS 14WKS on DOS: 04/10/21 FINDINGS: The uterus measures 9.7 by 5 x 6.4 cm. Appears to be a gestational sac in the endometrial canal. The right ovary measures 3.2 x 2.3 x 3.1 cm. The left ovary measures 3.4 x 2.2 x 2.6 cm. There is a 1.4 x 1.4 x 1.7 cm anechoic lesion in the left ovary. Subsequent color and duplex Doppler interrogation of the ovaries demonstrated symmetric vascular flow to both ovaries, though this does not exclude the possibility of torsion due to the dual blood supply. Questionable gestational sac in the uterus which measures 0.74 cm. This is out of range for estimating gestational age. There is a questionable yolk sac noted within it. Recommend follow-up study. IMPRESSION: 1. Small cystic area in the endometrial canal measuring 1.66 x 1.31 x 1.47 cm cm. There is questionable yolk sac seen. These findings are out of range for estimating gestational age. 2. No pole or heart rate. 3. There is a small hypovascular lesion in the uterus measuring 8 x 6 x 8 mm which appears nonvascular. 4. Recommend follow-up study. ATED BY: DALY HARIDN Jr., DO DICTATED DATE/TIME: 12/04/242010 SIGNED BY: DALY HARDIN Jr., DO SIGNED DATE/TIME: 12/04/242010 CC: e-Prescriptions Cephalexin Monohydrate (Cephalexin) 500 Mg Cap 500 MG PO Q8HR PRN for 5 Days, #15 CAP Prov: BE MONSIVAIS DO 12/04/24 Discharged With: Self Critical Care Note Critical Care Time?: No Stability Stability form required: No I personally scribed for BE MONSIVAIS DO ([email or web address]) on 12/04/24 at 20:53. Electronically submitted by Diallo Daniel ([email or web address]). I personally scribed for BE MONSIVAIS DO ([email or web address]) on 12/04/24 at 21:01. Electronically submitted by Diallo Daniel ([email or web address]). I personally scribed for BE MONSIVAIS DO ([email or web address]) on 12/04/24 at 22:35. Electronically submitted by Diallo Daniel ([email or web address]). BE MONSIVAIS DO Dec 04, 2024 20:53
[2024-12-04 22:35] VITALS: BP 122/62; PULSE 66; RESP 16; TEMP 97.8; O2SAT 99
[2024-12-04] MEDS ORDERED: CEPH500C PO (23:58)
== END 2024-12-04 23:11 | disposition home or self-care (01) ==
LOC: ER 18:08
DX: O26.891 Other specified pregnancy related conditions, first trimester (principal); O23.41 Unspecified infection of urinary tract in pregnancy, first trimester; N39.0 Urinary tract infection, site not specified; R10.20 Pelvic and perineal pain unspecified side; Z79.899 Other long term (current) drug therapy; Z98.890 Other specified postprocedural states; Z90.49 Acquired absence of other specified parts of digestive tract; Z3A.01 Less than 8 weeks gestation of pregnancy
CPT/HCPCS: 36415; 76705; 76801; 80053; 81001; 83690; 84702; 85025

== ENCOUNTER 2025-01-11 15:02 | Emergency (ER) | payer BC ==
[~2025-01-11] VITALS: Ht 162.6 cm; Wt 105.0 kg
[~2025-01-11 15:02] MED LIST: CEPH500C PO
[2025-01-11 15:08] VITALS: TEMP 98
[2025-01-11 15:30] VITALS: PULSE 85; RESP 21; O2SAT 98
--- NOTE | 2025-01-11 15:50 | ED.PDOC ---
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 Patient states, she is currently [id number] and has been experiencing vaginal bleeding sudden onset, today (01/11/25). Patient relays, that dark vaginal discharge began on Wednesday (01/08/25) and bleeding quality then increased today (01/11/25); endorses having to change an overnight sanitary pad every x1-2hours. Patient reports, that she was told by her OB-TECHNOLOGY OFFICER to have a non-viable ; blighted ovum. At this time patient endorses, pain to be a 9/10 on the pain scale associated with passing clots. Patient denies dizziness, headache, nausea, or vomiting. No other symptoms or modifying factors are present at this time. Chief Complaint: Vaginal Bleed Time Seen by MD: 15:50 Reviewed Notes: Nurses Notes, Medications, Allergies Allergies: Coded Allergies: NO KNOWN ALLERGIES (Unverified , 04/10/21) Home Meds Active Scripts Cephalexin Monohydrate (Cephalexin) 500 Mg Cap, 500 MG PO Q8HR PRN for 5 Days, #15 CAP Prov:BE MONSIVAIS 12/04/24 Information Source: Patient Mode of Arrival: Ambulatory Timing: Days Prehospital treatment: None Severity: Moderate Vaginal Discharge: None Vaginal Lesions: None Bleeding Quality: Bright Red Vaginal Mass: None Onset Of Mass/Bleeding: Spontaneous Sexual Activity: Last Consensual [place]: Unknown Control: None History of: Current Blood Type: Unknown Associated Signs and Symptoms: Vaginal Bleeding, Cramping Past Medical History PAST MEDICAL HISTORY: Denies Surgical History: Appendectomy, TECHNOLOGY OFFICER History: No Pertinent TECHNOLOGY OFFICER History Family History Family History: Reviewed,noncontributory to illness Social History Smoker: Non-Smoker Alcohol: Denies ETOH Use Drugs: Denies Drug Use Lives In: Home Constitutional: denies: chills, diaphoresis, fatigue, fever, malaise, sweats, weakness, others EENTM: denies: blurred vision, double vision, ear bleeding, ear discharge, ear drainage, ear pain, ear ringing, eye pain, eye redness, hearing loss, mouth pain, mouth swelling, nasal discharge, nose bleeding, nose congestion, nose pain, photophobia, tearing, throat pain, throat swelling, voice changes, others Respiratory: denies: cough, hemoptysis, orthopnea, SOB at rest, shortness of breath, SOB with excertion, stridor, wheezing, others Cardiovascular: denies: chest pain, dizzy spells, diaphoresis, Dyspnea on exertion, edema, irregular heart beat, left arm pain, lightheadedness, palpitations, PND, syncope, others Gastrointestinal: denies: abdomen distended, abdominal pain, blood streaked bowels, constipated, diarrhea, dysphagia, difficulty swallowing, hematemesis, melena, nausea, poor appetite, poor fluid intake, rectal bleeding, rectal pain, vomiting, others Genitourinary: reports: abnormal vagina bleeding; denies: burning, dyspareunia, dysuria, flank pain, frequency, hematuria, incontinence, pain, , vagina discharge, urgency, others Neurological: denies: dizziness, fainting, headache, left sided numbness, left sided weakness, numbness, paresthesia, pre-existing deficit, right sided numbness, right sided weakness, seizure, speech problems, tingling, tremors, weakness, others Musculoskeletal: denies: back pain, gout, joint pain, joint swelling, muscle pain, muscle stiffness, neck pain, others Integumetry: denies: bruises, change in color, change in hair/nails, dryness, laceration, lesions, lumps, rash, wounds, others Allergic/Immunocompromised: denies: Difficulty Healing, Frequent Infections, Hives, Itching, others Hematologic/Lymphatic: denies: anemia, blood clots, easy bleeding, easy bruising, swollen glands, others Endocrine: denies: excessive hunger, excessive sweating, excessive thirst, excessive urination, flushing, intolerance to cold, intolerance to heat, unexplained weight gain, unexplained weight loss, others Psychiatric: denies: anxiety, bipolar disorder, depression, hopeless, panic disorder, schizophrenia, sleepless, suicidal, others All Other Systems: Reviewed and Negative Physical Exam General Appearance: Mild Distress, Normal HEENT: Normal ENT Inspection, Pharynx Normal Neck: Full Range of Motion, Non-Tender, Normal, Normal Inspection Respiratory: Chest Non-Tender, Lungs Clear, No Accessory Muscle Use, No Respiratory Distress, Normal Breath Sounds Cardiovascular: No Edema, No Murmur, No Gallop, Normal Peripheral Pulses, Regular Rate/Rhythm Breast Exam: Deferred Gastrointestinal: No Organomegaly, No Pulsatile Mass, Normal Bowel Sounds, Suprapubic, Tenderness Genitalia: Deferred Pelvic: Deferred Rectal: Deferred Extremities: No calf tenderness, Normal capillary refill, Normal inspection, Normal range of motion, Non-tender, No pedal edema Musculoskeletal : Apperance: Normal Neurologic: Alert, border inspector II-XII nml as Tested, No Motor Deficits, Normal Affect, Normal Mood, No Sensory Deficits Cerebellar Function: Normal Reflexes: Normal Skin: Dry, Normal Color, Warm Lymphatic: No Adenopathy Was a procedure done? Was a procedure done?: No Differential Diagnosis (TECHNOLOGY OFFICER) Vaginal Bleeding: - Inevitable, - Missed, - Threatened X-Ray, Labs, Meds, VS Vital Signs Date Time Temp Pulse Resp B/P (MAP) Pulse Ox O2 Delivery O2 Flow Rate FiO2 01/11/25 18:25 85 21 137/63 (87) 99 01/11/25 17:14 80 18 103/54 01/11/25 16:44 88 22 137/60 01/11/25 15:30 85 21 98 Room Air* 0 21 01/11/25 15:08 98.0 95 18 120/78 97 98.0 Lab Test 01/11/25 19:00 01/11/25 16:09 Range/Units Urine Color Light-red Yellow Urine Clarity Ex.turbid Clear Urine pH 6.5 5.0-9.0 Urine Specific [place] 1.026 1.001-1.035 Urine Protein 1+ H Negative Urine Ketones 1+ H Negative Urine Blood 3+ H Negative /uL Urine Nitrite Negative Negative Urine Bilirubin Negative Negative Urine Urobilinogen Normal Negative mg/dL Urine Leukocyte Esterase 1+ Negative /uL Urine RBC 6934 0 - 4 /hpf Urine WBC Clumps Present None Seen /hpf Urine Microscopic WBC 31 H 0-5 /HPF Urine Squamous Epithelial Cells None seen <5 /hpf Urine Bacteria None seen None Seen /hpf Urine Mucus Few None Seen Urine Glucose Normal Normal mg/dL White Blood Count 8.9 4.4-10.8 10^3/uL Red Blood Count 4.25 4.0-5.20 10^6/uL Hemoglobin 13.1 12.2-16.2 g/dL Hematocrit 38.6 36.0-46.0 % Mean Corpuscular Volume 90.9 80.0-100.0 fL Mean Corpuscular Hemoglobin 30.9 28.0-32.0 pg Mean Corpuscular Hemoglobin Concent 34.0 32.0-36.0 g/dL Red Cell Distribution Width 12.6 11.8-14.3 % Platelet Count 222 140-450 10^3/uL Mean Platelet Volume 8.4 6.9-10.8 fL Neutrophils (%) (Auto) 56.8 37.0-80.0 % Lymphocytes (%) (Auto) 33.9 10.0-50.0 % Monocytes (%) (Auto) 7.5 0.0-12.0 % Eosinophils (%) (Auto) 1.4 0.0-7.0 % Basophils (%) (Auto) 0.4 0.0-2.0 % Neutrophils # (Auto) 5.1 1.6-8.6 10 ^3/uL Lymphocytes # (Auto) 3.0 0.4-5.4 10 ^3/uL Monocytes # (Auto) 0.7 0-1.3 10 ^3/uL Eosinophils # (Auto) 0.1 0-0.8 10 ^3/uL Basophils # (Auto) 0 0-0.2 10 ^3/uL Nucleated Red Blood Cells 0.0 % Prothrombin Time 10.0 9.3-11.8 sec Prothrombin Time INR 0.94 0.9-1.15 Activated Partial Thromboplast Time 25.9 24.5-34.5 SEC Sodium Level 140 136-145 mmol/L Potassium Level 3.7 3.5-5.1 mmol/L Chloride Level 104 98-107 mmol/L Carbon Dioxide Level 25 20-31 mmol/L Anion Gap 11 5-15 Blood Urea Nitrogen 8 L 9-23 mg/dL Creatinine 0.72 0.550-1.02 mg/dL Glomerular Filtration Rate Calc 115 >90 mL/min BUN/Creatinine Ratio 11.1 10.0-20.0 Serum Glucose 82 74-106 mg/dL Calcium Level 9.2 8.7-10.4 mg/dL Beta HCG, Quantitative 1631.4 H 1.5-4.2 mIU/mL Current Medications Medications (Trade) Dose Ordered Sig/Davion Route Start Time Stop Time Status Last Admin Morphine Sulfate 4 mg ONCE ONCE IV 01/11/25 16:00 01/11/25 16:01 DC 01/11/25 16:44 [facility] [id number] [address] Ph: [phone] DIAGNOSTIC IMAGING Diagnostic Imaging Report : [id number] Signed PATIENT: NEMESIO WEBSTER ACCT: [id number] UNIT: [id number] : 1995 LOC: ER ROOM / BED: / AGE / SEX: 29 / F ADM STATUS: REG ER SERVICE 155 ORDERING PHYSICIAN: VALERIE KOHLI MD PROCEDURE(s): OB4US - OB ULTRASOUND COMP LESS 14WKS REASON: vaginal bleeding ORDER NUMBER(s): [id number], ACCESSION NUMBER(s): [id number] Procedure: US OB ULTRASOUND COMP LESS 14WKS Study Date and Requested Time: 01/11/2025 05:23 PM Study Description: US OB ULTRASOUND COMP LESS 14WKS Study vaginal bleeding Comparison: US OB ULTRASOUND COMP LESS 14WKS on DOS: 12/04/24, OB ULTRASOUND COMP LESS 14WKS on DOS: 04/10/21 Technique: Multiple high resolution zabala-scale images obtained of the uterus, fetus, and other gestational components with M-mode scanning for evaluation of heart rate. Findings: No intrauterine is visualized. Uterus measures 11.2 x 5.7 x 5.9 cm in size. Endometrium within normal limits in size measuring up to 10 mm. 1.1 x 1 x 1 cm solid avascular structure noted over the cervical region Right ovary is not visualized. Left ovary measures 2.5 x 1.4 x 2.5 cm with normal color doppler flow. No left ovarian lesions noted. No evidence of free fluid in the cul-de-sac. Impression: No intrauterine is visualized. Nonspecific 1.1 x 1 x 1 cm solid avascular structure over the cervical region. The right ovary is not visualized. ATED BY: NERY GUPTA DO DICTATED DATE/TIME: 01/11/251805 SIGNED BY: NERY GUPTA DO SIGNED DATE/TIME: 01/11/251805 CC: X-Ray, Labs, Meds, VS Comment Patient presenting with pelvic cramping and vaginal bleeding in the setting of known bladed over at approximately 7 weeks gestation. Vitals are stable on exam unremarkable although patient uncomfortable appearing Lab work (CBC, BMP) to evaluate for evidence of severe anemia, electrolyte abnormality including hypokalemia, hyperkalemia, hypernatremia, hyponatremia, hyperglycemia, hypoglycemia, etc. Beta hCG quant Pelvic ultrasound to evaluate for ectopic , retained products, viable IV morphine Re-evaluate Social determinant surveillance affecting care: Social determinants of health that will affect the patient's care: Poor access to outpatient care/followup (provided outpatient resources) Time of 1ST Reevaluation: 16:20 Reevaluation 1ST: Unchanged Patient Education/Counseling: Diagnosis, Treatment Family Education/Counseling: No Family Present Departure 1 Departure Time of Disposition: 20:02 (On reassessment, patient's symptoms nearly resolved . Labs unremarkable besides elevated beta HCG and ultrasound with no IUP. Discussed with patient results and for outpatient follow-up with OB for further evaluation of her likely miscarriage. Chemistries return precautions and PMD and OB follow-up.) Impression: Primary Impression: Complete miscarriage Additional Impressions: Acute pelvic pain Vaginal bleeding affecting early Disposition: 01 HOME / SELF CARE / HOMELESS Condition: Good Discharged With: Self Critical Care Note Critical Care Time?: No Stability Stability form required: No Heart Score Heart Score: Heart Score Response (Comments) Value History N/A 0 EKG N/A 0 Age N/A 0 Risk Factors N/A 0 Troponin N/A 0 Total 0 I personally scribed for VALERIE KOHLI MD (Hive [employer] unlimited) on 01/11/25 at 15:50. Electronically submitted by Tsering Reaves ([email or web address]). I personally scribed for VALERIE KOHLI MD ([email or web address]) on 01/11/25 at 16:04. Electronically submitted by Tsering Reaves ([email or web address]). I personally scribed for VALERIE KOHLI MD ([employer]) on 01/11/25 at 18:58. Electronically submitted by Tsering Reaves ([email or web address]). VALERIE KOHLI MD Jan 11, 2025 15:50
[2025-01-11 16:29] LABS: Hematocrit 38.6 % (36.0-46.0); Hemoglobin 13.1 g/dL (12.2-16.2); Mean Corpuscular Hemoglobin 30.9 pg (28.0-32.0); Mean Corpuscular Volume 90.9 fL (80.0-100.0); Nucleated Red Blood Cells % 0.0 %
[2025-01-11 16:42] LABS: Chloride 104 mmol/L (98-107); Potassium 3.7 mmol/L (3.5-5.1); Sodium 140 mmol/L (136-145)
[2025-01-11 16:43] LABS: Anion Gap 11 (5-15); Calcium 9.2 mg/dL (8.7-10.4); Carbon Dioxide 25 mmol/L (20-31); INR 0.94 (0.9-1.15); Partial Thromboplastin Time 25.9 SEC (24.5-34.5); Prothrombin Time 10.0 sec (9.3-11.8)
[2025-01-11] MEDS: MORPHINE SULFATE 4 MG/ML SYR/VIAL IV ONE (16:44)
[2025-01-11 16:48] LABS: BUN/Creatinine Ratio 11.1 (10.0-20.0); Glucose 82 mg/dL (74-106)
[2025-01-11 16:54] LABS: Blood Urea Nitrogen 8 mg/dL (9-23)
--- NOTE | 2025-01-11 18:08 | DVH ---
Procedure: US OB ULTRASOUND COMP LESS 14WKS Study Date and Requested Time: 01/11/2025 05:23 PM Study Description: US OB ULTRASOUND COMP LESS 14WKS Study vaginal bleeding Comparison: US OB ULTRASOUND COMP LESS 14WKS on DOS: 12/04/24, OB ULTRASOUND COMP LESS 14WKS on DOS: 04/10/21 Technique: Multiple high resolution zabala-scale images obtained of the uterus, fetus, and other gestational components with M-mode scanning for evaluation of heart rate. Findings: No intrauterine is visualized. Uterus measures 11.2 x 5.7 x 5.9 cm in size. Endometrium within normal limits in size measuring up to 10 mm. 1.1 x 1 x 1 cm solid avascular structure noted over the cervical region Right ovary is not visualized. Left ovary measures 2.5 x 1.4 x 2.5 cm with normal color doppler flow. No left ovarian lesions noted. No evidence of free fluid in the cul-de-sac. Impression: No intrauterine is visualized. Nonspecific 1.1 x 1 x 1 cm solid avascular structure over the cervical region. The right ovary is not visualized.
[2025-01-11 20:00] LABS: Urine Protein, UAD 1+ (Negative); Urine WBC Clumps PRESENT /hpf (None Seen)
[2025-01-11 20:39] VITALS: BP 100/48; PULSE 71; RESP 21; O2SAT 97
== END 2025-01-11 21:10 | disposition home or self-care (01) ==
LOC: ER 15:02
DX: O03.9 Complete or unspecified spontaneous abortion without complication (principal); R10.20 Pelvic and perineal pain unspecified side; Z3A.01 Less than 8 weeks gestation of pregnancy; Z90.49 Acquired absence of other specified parts of digestive tract
CPT/HCPCS: 36415; 76801; 80048; 81001; 84702; 85025; 85610; 85730; 86850; 86900; 86901; 96374; 99285; J2270